=== PATIENT | female | born 1985 | race Caucasian/White ===

== ENCOUNTER 2021-06-23 14:44 | Emergency (ER) | payer SELFPAY ==
[2021-06-23 15:44] LABS: HEMOGLOBIN 12.6 gm/dl (12.3-15.3); RED BLOOD COUNT 4.35 M/UL (4.00-5.10)
[2021-06-23 16:04] LABS: BUN/CREATININE RATIO 10 (0-10)
== END 2021-06-24 03:05 | disposition home or self-care (01) ==
LOC: ER1 14:44
PROVIDERS: Physician Assistant
DX: S41.112A Laceration without foreign body of left upper arm, initial encounter (principal); S41.111A Laceration without foreign body of right upper arm, initial encounter; S31.119A Laceration without foreign body of abdominal wall, unspecified quadrant without penetration into peritoneal cavity, initial encounter; F32.A Depression, unspecified; Z20.822 Contact with and (suspected) exposure to COVID-19; X78.9XXA Intentional self-harm by unspecified sharp object, initial encounter
CPT/HCPCS: 80053; 80307; 84703; 85025; 99285; G0480; U0002